=== PATIENT | male | born 1970 | race Caucasian/White ===

== ENCOUNTER 2016-08-02 10:34 | Emergency (ER) | payer OTHER ==
[~2016-08-02 10:34] MED LIST: 'PARAFON FORTE500 M1 PO; CYCLOBENZAPRINE5 M3 PO; HYDROCODONE BIT1 T11 PO; IBU800 MG PO; Motrin,Rufen800 MG PO; NAPROSYN500 MG PO
[2016-08-02] MEDS ORDERED: NAPROSYN500 MG PO (10:45)
[2016-08-02] MEDS ORDERED: 'PARAFON FORTE500 M1 PO (10:45)
== END 2016-08-02 11:50 | disposition home or self-care (01) ==
LOC: ED 10:34
DX: S39.012A Strain of muscle, fascia and tendon of lower back, initial encounter (principal); R03.0 Elevated blood-pressure reading, without diagnosis of hypertension; X50.1XXA Overexertion from prolonged static or awkward postures, initial encounter; Y93.89 Activity, other specified; Y92.9 Unspecified place or not applicable; Y99.9 Unspecified external cause status

== ENCOUNTER 2016-09-11 20:49 | Emergency (ER) | payer OTHER ==
[~2016-09-11] VITALS: Ht 170.1 cm; Wt 90.7 kg
[2016-09-11] MEDS ORDERED: LIDEX 0.05% CRE15 GM T (21:45)
[2016-09-11] MEDS ORDERED: BENADRYL ALLERG25 M5 PO (21:45)
== END 2016-09-11 21:50 | disposition home or self-care (01) ==
LOC: ED 20:49
DX: S20.469A Insect bite (nonvenomous) of unspecified back wall of thorax, initial encounter (principal); W57.XXXA Bitten or stung by nonvenomous insect and other nonvenomous arthropods, initial encounter; Y93.89 Activity, other specified; Y92.9 Unspecified place or not applicable; Y99.9 Unspecified external cause status

== ENCOUNTER 2018-07-26 09:50 | Emergency (ER) | payer SELFPAY ==
[~2018-07-26] VITALS: Ht 170.1 cm; Wt 97.5 kg
[~2018-07-26 09:50] MED LIST changes: +BENADRYL ALLERG25 M5 PO; +LIDEX 0.05% CRE15 GM T
[2018-07-26 10:16] LABS: BILIRUBIN NEGATIVE (NEGATIVE); BLOOD NEGATIVE (NEGATIVE); CLARITY CLEAR (CLEAR); COLOR YELLOW (YELLOW); GLUCOSE NEGATIVE (NEGATIVE); KETONE NEGATIVE (NEGATIVE); LEUKO ESTERASE NEGATIVE (NEGATIVE); NITRITE NEGATIVE (NEGATIVE); UROBILINOGEN 0.2 E.U./dl (0.2-1.0)
[2018-07-26 10:26] LABS: BASO # 0.1 10*3/uL (0.0-0.1); BASO % 0.9 % (0.0-1.0); EOS # 0.1 10*3/uL (0.0-0.4); HEMATOCRIT 43.6 % (42.0-52.0); HEMOGLOBIN 15.8 g/dl (14.0-18.0); LYMPH # 1.5 10*3/uL (1.3-4.4); LYMPH % 26.3 % (27.0-41.0); MEAN CELL VOLUME 84.8 fl (80.0-94.0); MEAN CORPUSCULAR HGB 30.7 pg (27.0-31.0); MEAN CORPUSCULAR HGB CONC 36.2 g/dl (33.0-37.0); MEAN PLATELET VOLUME 8.7 fl (9.6-12.3); MONO # 0.5 10*3/uL (0.1-1.0); MONO % 8.5 % (3.0-9.0); NEUT # 3.4 10*3/uL (2.3-7.9); NEUT % 61.4 % (47.0-73.0); PLATELET COUNT AUTOMATED 222 10*3/uL (130-400); RED BLOOD COUNT 5.14 10*6/uL (4.50-5.90); RED CELL DISTRI WIDTH 12.5 % (0-14.5); WHITE BLOOD COUNT 5.6 10*3/uL (4.8-10.8)
[2018-07-26 10:42] LABS: ALKALINE PHOSPHATASE 51 U/L (45-117); BUN 11 mg/dl (7-24); CHLORIDE 106 mmol/L (98-107); LIPASE 99 U/L (73-393); POTASSIUM 3.8 mmol/L (3.5-5.1); SGOT/AST 28 IU/L (3-35); SGPT/ALT 30 U/L (12-78); SODIUM 139 mmol/L (136-145); TOTAL PROTEIN 7.5 gm/dL (6.4-8.2)
[2018-07-26 10:42] LABS: EPITHELIAL CELLS 0-2; WBC 0-2 wbc/hpf (0-5)
== END 2018-07-26 12:26 | disposition home or self-care (01) ==
LOC: ED 09:50
PROVIDERS: Emergency Medicine; Nurse Practitioner Family
DX: R10.11 Right upper quadrant pain (principal)

== ENCOUNTER 2020-07-25 10:11 | Emergency (ER) | payer SELFPAY ==
[~2020-07-25] VITALS: Ht 170.1 cm; Wt 99.8 kg
== END 2020-07-25 13:27 | disposition home or self-care (01) ==
LOC: ED 10:11
DX: Z20.822 Contact with and (suspected) exposure to COVID-19 (principal); Z79.899 Other long term (current) drug therapy

== ENCOUNTER 2021-05-11 11:30 | Emergency (ER) | payer OTHER ==
[~2021-05-11] VITALS: Ht 167.6 cm; Wt 99.3 kg
[2021-05-11] MEDS ORDERED: CYCLOBENZAPRINE10 MG PO (14:37)
[2021-05-11] MEDS ORDERED: Motrin,Rufen800 MG PO (14:37)
== END 2021-05-11 14:43 | disposition home or self-care (01) ==
LOC: ED 11:30
DX: S46.912A Strain of unspecified muscle, fascia and tendon at shoulder and upper arm level, left arm, initial encounter (principal); M79.602 Pain in left arm; V89.2XXA Person injured in unspecified motor-vehicle accident, traffic, initial encounter; Y93.89 Activity, other specified; Y92.89 Other specified places as the place of occurrence of the external cause; Y99.8 Other external cause status

== ENCOUNTER 2022-05-05 18:11 | Emergency (ER) | payer SELFPAY ==
[~2022-05-05] VITALS: Ht 170.1 cm; Wt 97.5 kg
[~2022-05-05 18:11] MED LIST changes: +CYCLOBENZAPRINE10 MG PO
[2022-05-05 20:50] LABS: BASO % 0.6 % (0.0-1.0); EOS # 0.2 10*3/uL (0.0-0.4); EOS % 2.5 % (1.0-4.0); HEMATOCRIT 39.4 % (42.0-52.0); LYMPH # 1.8 10*3/uL (1.3-4.4); MEAN CELL VOLUME 85.3 fl (80.0-94.0); MEAN CORPUSCULAR HGB 30.1 pg (27.0-31.0); MEAN CORPUSCULAR HGB CONC 35.3 g/dl (33.0-37.0); MEAN PLATELET VOLUME 8.7 fl (9.6-12.3); MONO # 0.7 10*3/uL (0.1-1.0); MONO % 9.8 % (3.0-9.0); NEUT % 59.7 % (47.0-73.0); PLATELET COUNT AUTOMATED 214 10*3/uL (130-400); RED BLOOD COUNT 4.62 10*6/uL (4.50-5.90); RED CELL DISTRI WIDTH 12.6 % (0-14.5); WHITE BLOOD COUNT 6.8 10*3/uL (4.8-10.8)
[2022-05-05 21:07] LABS: ALKALINE PHOSPHATASE 63 U/L (46-116); BUN 11 mg/dl (9-23); CHLORIDE 103 mmol/L (98-107); POTASSIUM 3.8 mmol/L (3.4-5.1); SGPT/ALT 33 U/L (10-49); TOTAL PROTEIN 6.7 gm/dL (6.0-8.0)
[2022-05-05 21:27] LABS: BILIRUBIN Negative (Negative); BLOOD Negative (Negative); CLARITY Clear (Clear); COLOR Yellow (Yellow); GLUCOSE Negative (Negative); KETONE Trace (Negative); LEUKO ESTERASE Trace (Negative); NITRITE Negative (Negative)
[2022-05-05 22:08] LABS: BACTERIA TRACE; MUCOUS 2+
== END 2022-05-05 23:45 | disposition home or self-care (01) ==
LOC: ED 18:11
PROVIDERS: Emergency Medicine
DX: B34.9 Viral infection, unspecified (principal); Z20.822 Contact with and (suspected) exposure to COVID-19; Z79.899 Other long term (current) drug therapy

== ENCOUNTER 2023-04-22 14:41 | Emergency (ER) | payer MEDICAID ==
[~2023-04-22] VITALS: Ht 170.1 cm; Wt 51.3 kg
[2023-04-22 15:21] LABS: BILIRUBIN Negative (Negative); BLOOD 2+ (Negative); CLARITY Clear (Clear); COLOR Yellow (Yellow); GLUCOSE Negative (Negative); KETONE Trace (Negative); LEUKO ESTERASE Negative (Negative); NITRITE Negative (Negative)
[2023-04-22 15:42] LABS: RBC 21-30 rbc/hpf (0-2)
[2023-04-22 15:43] LABS: BACTERIA 1+; MUCOUS TRACE
[2023-04-22 16:23] LABS: BASO # 0.1 10*3/uL (0.0-0.1); BASO % 0.9 % (0.0-1.0); EOS # 0.1 10*3/uL (0.0-0.4); EOS % 1.5 % (1.0-4.0); LYMPH # 2.1 10*3/uL (1.3-4.4); LYMPH % 30.9 % (27.0-41.0); MEAN CELL VOLUME 86.3 fl (80.0-94.0); MEAN CORPUSCULAR HGB 29.9 pg (27.0-31.0); MEAN CORPUSCULAR HGB CONC 34.6 g/dl (33.0-37.0); MEAN PLATELET VOLUME 8.7 fl (9.6-12.3); MONO # 0.6 10*3/uL (0.1-1.0); MONO % 8.7 % (3.0-9.0); NEUT % 57.3 % (47.0-73.0); PLATELET COUNT AUTOMATED 257 10*3/uL (130-400); RED BLOOD COUNT 4.75 10*6/uL (4.50-5.90); RED CELL DISTRI WIDTH 12.5 % (0-14.5); WHITE BLOOD COUNT 6.9 10*3/uL (4.8-10.8)
[2023-04-22 16:48] LABS: ALKALINE PHOSPHATASE 59 U/L (46-116); BUN 13 mg/dl (9-23); CHLORIDE 106 mmol/L (98-107); POTASSIUM 3.7 mmol/L (3.4-5.1); SGPT/ALT 18 U/L (5-49); TOTAL PROTEIN 7.2 gm/dL (6.0-8.0)
[2023-04-22] MEDS ORDERED: MELOXICAM7.5 MG PO (20:41)
[2023-04-22] MEDS ORDERED: FLOMAX0.4 MG PO (20:41)
== END 2023-04-22 21:08 | disposition home or self-care (01) ==
LOC: ED 14:41
PROVIDERS: Emergency Medicine; Nurse Practitioner
DX: N20.9 Urinary calculus, unspecified (principal)